=== PATIENT | male | born 1965 | race Caucasian/White ===

== ENCOUNTER → 2018-09-01 | Outpatient (CLI) | payer BC ==
--- NOTE | 2018-09-02 11:30 | PCVCIMAG ---
APPROVED REPORT Study performed: 09/01/2018 16:15:03 Exam: Stress Echocardiogram Indication: Chest pain , Dyspnea Patient Location: Echo lab Stress Nurse: Zonia Nelson RN Room #: 2 Status: routine Ht: 5 ft 9 in HR: 61 bpm BP: 142/82 mmHg Rhythm: NSR Medical History Medical History: Hyperlipidemia Cardiac Risk Factors: HTN, Hyperlipidemia Previous Cardiac Procedures: none Pretest Chest Pain Characteristics: No chest pain Exercise History: Physically active Procedure The patient underwent an Exercise Stress Test using the [place] Protocol. Blood pressure, heart rate, and EKG were monitored. An Echocardiogram was performed by ct scan technician in four stages in quad fashion. At peak stress, four selected images were obtained and placed side by side with resting images for comparison. Stress Test Details Stress Test: Exercise stress testing was performed using a [place] protocol. HR Resting HR: 61 bpmMax Heart Rate (APMHR): 167 bpm Max HR Achieved: 157 bpmTarget HR (85% APMHR): 141 bpm % of APMHR: 94 Recovery HR: 75 bpm HR response to stress: Normal HR response to stress BP Resting BP: 142/82 mmHg Max BP: 178/80 mmHg Recovery BP: 142/68 mmHg BP response to stress: Normal blood pressure response to stress. ECG Resting ECG: Sinus Rhythm Stress ECG: Sinus Rhythm, NSSTT changes ST Change: Non-ischemic Arrhythmia: occasional PVCs Recovery ECG: Sinus Rhythm, NSSTT changes Recovery ST Change: Non-ischemic Recovery Arrhythmia: rare PVCs Clinical Reason for Termination: Maximal effort Stress Symptoms: Chest pain Exercise duration: 10 min 08 sec Highest Stage Achieved: Stage 4: 4.2 mph at 16% grade. Exercise capacity: 13.4 METs Overall Exercise Capacity for Age: Good Scale: Active Angina Score: None No complications. Stress ECG Conclusion The patient exercised according to the [place] protocol for 10:08 mins; achieving a work level of 13.4 METS. The resting heart rate of 61 bpm lew to a maximum heart rate of 157 bpm. This value represent 94% of the maximal, age-predicted heart rate. The resting blood pressure of 142/82 mmHg, lew to a maximum blood pressure of 178/84 mmHg. The exercise test was stopped due to fatigue. Pre-Stress Echo The resting Echocardiogram showed normal left ventricular contractility with an estimated Ejection Fraction of about 55-60%. Normal wall motion in all segments on baseline images. Post-Stress Echo The stress Echocardiogram showed normal left ventricular contractility with an estimated Ejection Fraction of about 65-70%. Normal augmentation of wall motion in all segments on post stress images. Clinical No clinical or ECG evidence for ischemia. Conclusion Clinical Response: Non-ischemic Exercise Capacity: Average Stress ECG Response: Non-ischemic Stress Echo Images: Non-ischemic No clinical, EKG or echocardiographic evidence for ischemia. No echocardiographic evidence for exercise induced ischemia. No clinical, EKG or echocardiographic evidence for ischemia. <Conclusion> No clinical, EKG or echocardiographic evidence for ischemia. No echocardiographic evidence for exercise induced ischemia. No clinical, EKG or echocardiographic evidence for ischemia.
== END | disposition home or self-care (01) ==
LOC: PCVCIMAG 15:28
PROVIDERS: ATTEND Internal Medicine Cardiovascular Disease
DX: R07.89 Other chest pain (principal); R06.00 Dyspnea, unspecified; E78.00 Pure hypercholesterolemia, unspecified; I10 Essential (primary) hypertension; I47.1 Supraventricular tachycardia; R00.2 Palpitations
CPT/HCPCS: 93325; 93351